=== PATIENT | female | born 1965 | race Caucasian/White ===

== ENCOUNTER 2019-05-19 09:26 | Emergency (ER) | payer OTHER ==
[~2019-05-19] VITALS: Ht 160 cm; Wt 80.9 kg
[2019-05-19 09:31] VITALS: BP 173/84
--- NOTE | 2019-05-19 09:43 | NUR ---
PT HERE WITH C/O LEFT SHOULDER PAIN STATES SHE LIFTED SOMETHING AT WORK APPROX 1 WEEK. PT STATES PAIN GETS WORSE DESPITE USLE RELAXERS AND NARCOTIC PAIN MEDS.
--- NOTE | 2019-05-19 10:16 | NUR ---
ALL RESULTS BACK AT THIS TIME, CHART UP FOR RECHECK.
--- NOTE | 2019-05-19 10:58 | NUR ---
Patient/Caregiver given discharge instructions and they have confirmed that they understand the instructions. Patient ambulatory with steady gait.
== END 2019-05-19 11:00 | disposition home or self-care (01) ==
LOC: ED 10:52
DX: S46.012A Strain of muscle(s) and tendon(s) of the rotator cuff of left shoulder, initial encounter (principal); X58.XXXA Exposure to other specified factors, initial encounter; Y93.89 Activity, other specified; Y92.89 Other specified places as the place of occurrence of the external cause; Y99.8 Other external cause status
CPT/HCPCS: 99283